=== PATIENT | male | born 1980 | race Caucasian/White ===

== ENCOUNTER 2017-01-13 09:28 | Emergency (ER) | payer SELFPAY ==
[2017-01-13] MEDS ORDERED: DIPH/PERTUSS(ACELL)/TETANUS VAC/PF 0.5 ML SYR (>=10YO) IM ONE (09:58)
[2017-01-13] MEDS ORDERED: LIDOCAINE 1% INJ-PF (10 MG/ML) 30 ML SDV INJ ONE (09:58)
[2017-01-13] MEDS ORDERED: OXYCODONE-ACETAMINOPHEN 5-325 MG TABLET PO ONE (10:32)
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
[2017-01-13] MEDS ORDERED: CLINDAMYCIN PHOSPHATE INJ 300 MG/2 ML SDV IM ONE (12:14)
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
[2017-01-13 12:43] VITALS: BP 113/62
== END 2017-01-13 14:00 ==
LOC: ER 09:28
PROC: 0HQGXZZ Repair Left Hand Skin, External Approach (ICD-10-PCS; principal; 2017-01-13)
DX: S61.412A Laceration without foreign body of left hand, initial encounter (principal); X99.1XXA Assault by knife, initial encounter; I10 Essential (primary) hypertension; J45.909 Unspecified asthma, uncomplicated; F17.200 Nicotine dependence, unspecified, uncomplicated
CPT/HCPCS: 99283; 96372; 90471; 73130; 90715; 12002; J3490

== ENCOUNTER 2017-04-30 22:44 | Emergency (ER) | payer SELFPAY ==
[2017-04-30] MEDS ORDERED: DIPH/PERTUSS(ACELL)/TETANUS VAC/PF 0.5 ML SYR (>=10YO) IM ONE (23:15)
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
[2017-05-01 00:43] LABS: APPEARANCE,URINE CLEAR; BILIRUBIN,URINE NEGATIVE (NEGATIVE); GLUCOSE, URINE NEGATIVE (NEGATIVE); KETONES,URINE NEGATIVE (NEGATIVE); LEUKOCYTE ESTERASE,URINE NEGATIVE (NEGATIVE); NITRITE,URINE NEGATIVE (NEGATIVE); PROTEIN,URINE NEGATIVE (NEGATIVE); URINE SPECIFIC GRAVITY 1.002; UROBILINOGEN,URINE NEGATIVE mg/dL (<2.0)
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
[2017-05-01 00:57] LABS: ABSOLUTE BASOPHILS # (AUTO) 0.1 10^3/uL (0.0-0.2); ABSOLUTE EOSINOPHILS # (AUTO) 0.1 10^3/uL (0.0-0.6); ABSOLUTE MONOCYTES (AUTO) 0.9 10^3/uL (0.1-1.4); ABSOLUTE NEUT (AUTO) 7.9 10^3/uL (1.7-8.2); BASOPHILS % (AUTO) 1.1 % (0-2); EOSINOPHILS % (AUTO) 1.2 % (0-6); HEMATOCRIT 47.9 % (37.9-51.0); HEMOGLOBIN 16.4 g/dL (13.5-17.0); HGB HCT DIFFERENCE 1.3; LYMPHOCYTES % (AUTO) 25.3 % (13-45); MEAN CORPUSCULAR HEMOGLOBIN 31.4 pg (27.0-33.4); MEAN CORPUSCULAR HGB CONC 34.2 g/dL (32.0-36.0); MEAN CORPUSCULAR VOLUME 92 fl (80-97); MONOCYTES % (AUTO) 7.1 % (3-13); RED BLOOD COUNT 5.21 10^6/uL (4.35-5.55); RED CELL DISTRIBUTION WIDTH 13.4 % (11.5-14.0); SEGMENTED NEUTROPHILS % (AUTO) 65.3 % (42-78)
[2017-05-01 01:01] LABS: PROTHROMBIN TIME 12.4 SEC (11.4-15.4)
[2017-05-01 01:02] LABS: PARTIAL THROMBOPLASTIN TIME 28.9 SEC (23.5-35.8)
[2017-05-01] MEDS ORDERED: LIDOCAINE 1%/EPINEPHRINE INJ 20 ML VIAL INJ ONE (01:13)
[2017-05-01 01:16] LABS: ALANINE AMINOTRANSFERASE 32 U/L (21-72); ALKALINE PHOSPHATASE 64 U/L (38-126); ASPARTATE AMINO TRANSFERASE 25 U/L (17-59); BILIRUBIN,DIRECT 0.5 mg/dL (0.0-0.4); BILIRUBIN,TOTAL 0.8 mg/dL (0.2-1.3); BLOOD UREA NITROGEN 12 mg/dL (7-20); CALCIUM 9.6 mg/dL (8.4-10.2); CREATININE RESULT 0.96 mg/dL (0.52-1.25); GLUCOSE 115 mg/dL (75-110); LIPASE 95.5 U/L (23-300); TOTAL PROTEIN 7.5 g/dL (6.3-8.2)
[2017-05-01 01:25] LABS: ALCOHOL 309 mg/dL (NONE DETECTED)
[2017-05-01 01:37] LABS: ANION GAP 20 (5-19)
[2017-05-01 01:38] LABS: CARBON DIOXIDE 20 mmol/L (22-30); CHLORIDE 109 mmol/L (98-107); SODIUM 149.2 mmol/L (137-145)
[2017-05-01 01:45] LABS: POTASSIUM 4.2 mmol/L (3.6-5.0)
[2017-05-01 03:57] VITALS: BP 117/72
== END 2017-05-01 03:55 ==
LOC: ER 22:44
DX: S09.90XA Unspecified injury of head, initial encounter (principal); R06.2 Wheezing; Y04.2XXA Assault by strike against or bumped into by another person, initial encounter; I10 Essential (primary) hypertension; F17.200 Nicotine dependence, unspecified, uncomplicated; Z88.0 Allergy status to penicillin; Z23 Encounter for immunization
CPT/HCPCS: 99284; 90471; 36415; 80307; 83690; 85025; 85610; 85730; 80053; 81001; 70450; 72125; 90715; J3490

== ENCOUNTER 2017-05-02 19:47 | Emergency (ER) | payer SELFPAY ==
[2017-05-02 19:55] VITALS: BP 149/85
== END 2017-05-02 23:23 | disposition left against medical advice (07) ==
LOC: ER 19:47
DX: Z53.9 Procedure and treatment not carried out, unspecified reason (principal)

== ENCOUNTER 2017-06-08 03:58 | Emergency (ER) | payer SELFPAY ==
--- NOTE | 2017-06-08 04:41 | ER Document Report ---
ED General - General TRAVEL OUTSIDE OF THE [place] IN LAST 30 DAYS: No <ARGENTINA VAIL - Last Filed: 06/08/17 06:34> <ABY RUSSELL - Last Filed: 06/08/17 10:20> <YOANNA DAIZ - Last Filed: 06/08/17 10:28> - General Stated Complaint: SUICIDAL IDEATION Time Seen by Provider: 06/08/17 04:21 Notes: Patient is 36-year-old male who presents with complaint of some depression. Patient apparently got in argument with his sister. According to report patient grabbed a razor and threatened to cut himself. Patient did not cut himself. Patient says that he did not really have any intention of cutting himself he was just upset at the time and was in argument with his sister. Police were then called and apparently patient was told that he could either go to group home or come to the ER. Patient decided to come to the ER voluntarily. Patient says that he is not suicidal or homicidal. He says he does have depression and history of depression. He says he started to develop depression after his marriage to his folded a few years ago. Currently he is in a good relationship with his girlfriend. He does admit that he drinks approximately twice a week. He says it does not get withdrawal. He says he really does drugs but did do cocaine and marijuana over New Year's Whitley. (ARGENTINA VAIL) - Related Data Allergies/Adverse Reactions: amoxicillin [Amoxicillin] Allergy (Unknown, Verified 05/02/17 19:53) Past Medical History - Social History Smoking Status: Current Every Day Smoker Frequency of alcohol use: Occasional Drug Abuse: Cocaine, Marijuana Family History: Reviewed & Not Pertinent - Past Medical History Cardiac Medical History: Reports: Hx Hypertension Pulmonary Medical History: Reports: Hx Asthma Renal/ Medical History: Denies: Hx Peritoneal Dialysis Past Surgical History: Reports: Hx Orthopedic Surgery - left hand, Hx Tonsillectomy - T/A - Immunizations Immunizations up to date: No Hx Diphtheria, Pertussis, Tetanus Vaccination: Yes <ARGENTINA VAIL - Last Filed: 06/08/17 06:34> Review of Systems <ARGENTINA VAIL - Last Filed: 06/08/17 06:34> <ABY RUSSELL - Last Filed: 06/08/17 10:20> <YOANNA DIAZ - Last Filed: 06/08/17 10:28> - Review of Systems Notes: My Normal Review Basic REVIEW OF SYSTEMS: CONSTITUTIONAL : Denies fever, chills, or sweats. Denies recent illness. EENT: Denies eye, ear, throat, or mouth pain or symptoms. Denies nasal or sinus congestion. CARDIOVASCULAR: Denies chest pain. RESPIRATORY: Denies cough, cold, or chest congestion. Denies shortness of breath, difficulty breathing, or wheezing. GASTROINTESTINAL: Denies abdominal pain. Denies nausea, vomiting, or diarrhea. MUSCULOSKELETAL: Denies neck or back pain or joint pain or swelling. SKIN: Denies rash or skin lesions. NEUROLOGICAL: Denies altered mental status or loss of consciousness. Denies headache. Denies weakness or paralysis or loss of use of either side. Denies problems with gait or speech. Denies sensory or motor loss. PSYCHIATRIC: Depression. ALL OTHER SYSTEMS REVIEWED AND NEGATIVE. (ARGENTINA VAIL) Physical Exam <ARGENTINA VAIL - Last Filed: 06/08/17 06:34> <ABY RUSSELL - Last Filed: 06/08/17 10:20> <YOANNA DIAZ - Last Filed: 06/08/17 10:28> - Vital signs Vitals: Temp Pulse Resp BP Pulse Ox 97.4 F 61 18 158/100 H 100 06/08/17 03:59 06/08/17 03:59 06/08/17 03:59 06/08/17 03:59 06/08/17 03:59 - Notes Notes: General Appearance: Well nourished, alert, cooperative, no acute distress, no obvious discomfort. Vitals: reviewed, See vital signs table. Head: no swelling or tenderness to the head Eyes: PERRL, EOMI, Conjuctiva clear Mouth: No decreasd moisture Lungs: No wheezing, No rales, No rhonci, No accessory muscle use, good air exchange bilaterally. Heart: Normal rate, Regular rythm, No murmur, no rub Abdomen: Normal BS, soft, No rigidity, No abdominal tenderness, No guarding, no rebound, no abdominal masses, no organomegaly Extremities: strength 5/5 in all extremities, good pulses in all extremities, no swelling or tenderness in the extremities, no edema. Skin: warm, dry, appropriate color, no rash Neuro: speech clear, oriented x 3, normal affect, responds appropriately to questions. Psychiatric: Patient at times tearful but very forthcoming with his history. She does make good eye contact. (ARGENTINA VAIL) Course - Laboratory Result Diagrams: 06/08/17 05:10 06/08/17 05:10 <ARGENTINA VAIL - Last Filed: 06/08/17 06:34> - Laboratory Result Diagrams: 06/08/17 05:10 06/08/17 05:10 <ABY RUSSELL - Last Filed: 06/08/17 10:20> - Laboratory Result Diagrams: 06/08/17 05:10 06/08/17 05:10 <YOANNA DIAZ - Last Filed: 06/08/17 10:28> - Re-evaluation Re-evalutation: 06/08/17 06:35 Patient does agree to speak with psychiatry to talk to him about potential medication use to help with his depression. He said he has been on Cymbalta which is helped in the past. He does have history of alcohol abuse but says he drinks once to twice a week. He is able answer questions appropriately. I do not believe he is suicidal. He seems forthcoming and is able answer questions appropriately with me. She does not have any signs of injuring himself. I do not think he needs to be placed on involuntary commitment paperwork at this time. Patient is medically stable for psychiatric evaluation. Dictation of this chart was performed using voice recognition software; therefore, there may be some unintended grammatical errors. (ARGENTINA VAIL) - Vital Signs Vital signs: Temp Pulse Resp BP Pulse Ox 97.8 F 78 18 111/76 95 06/08/17 08:16 06/08/17 08:16 06/08/17 08:16 06/08/17 08:16 06/08/17 08:16 - Laboratory Laboratory results interpreted by me: 06/08/17 06/08/17 04:35 05:10 Sodium 150.8 H Chloride 111 H Urine Blood SMALL H Salicylates < 1.0 L Acetaminophen < 10 L - EKG Interpretation by Me Additional EKG results interpreted by me: 01/03/18 04:42 EKG is reviewed and interpreted by me. EKG shows sinus rhythm with a rate of [address] segment elevation or depression. No ischemic T-wave inversions. NH interval, QRS duration, QTc intervals are within normal range. No old EKG available for comparison at this time. (ARGENTINA VAIL) Discharge <ARGENTINA VAIL - Last Filed: 06/08/17 06:34> <ABY RUSSELL - Last Filed: 06/08/17 10:20> <YOANNA DIAZ - Last Filed: 06/08/17 10:28> - Discharge Clinical Impression: Alcohol abuse Depression Qualifiers: Depression Type: unspecified Qualified Code(s): F32.9 - Major depressive disorder, single episode, unspecified Condition: Stable Disposition: HOME, SELF-CARE Additional Instructions: ACUTE ALCOHOL INTOXICATION and ALCOHOL ABUSE: Your evaluation revealed very high levels of alcohol. You can from drinking a large amount of alcohol rapidly! Further, there's the risk of falls , traffic accidents, and fights. A high portion (about 50 percent) of the serious injuries seen in hospital emergency rooms are caused by alcohol. Alcohol overdosage is usually due to an underlying emotional or psychiatric problem. You may benefit from counselling. If "binge" drinking is an ongoing problem for you, or if you drink ANY AMOUNT of alcohol EVERY day, you most likely have a tendency to alcoholism. You should avoid alcohol totally. We can refer you for treatment. Persons with alcohol problems are often also prone to other addictions -- you should discuss any use of medications or drugs with the doctor. You should be watched at home for the next several hours by someone who has not been drinking. Get extra fluids for the next 24 hours. Call the doctor if there is repeated vomiting, increasing headache, decreasing level of alertness, or any other worsening. CHRONIC ALCOHOLISM and ALCOHOL ABUSE: Your evaluation reveals evidence of chronic alcoholism, an addiction to alcohol. The tendency to alcoholism may be inherited. Chronic use of alcohol weakens muscles, causes fatty deposits in the liver , damages the stomach, makes you more prone to infections, and can cause defects in unborn children. In the long run, brain atrophy and cirrhosis of the liver result. You are also at greater risk for certain types of cancer, such as cancer of the mouth, throat, stomach, and liver. Counselling services are available to help you. In-hospital treatment programs often help. Support groups such as Alcoholics Anonymous can be very useful in beating this addiction. Your physician can make a referral for you. As alcoholics often are prone to other addictions, you should discuss your use of any other medications with the doctor. DEPRESSION: Your evaluation reveals that you have mental depression. While symptoms may be vague, they often include disturbance of sleep, fatigue, loss of appetite , and general loss of interest in life. While depression may be a side effect of drugs, or a reaction to a major change in your life, many cases have no known cause. If depression is acute, and related to a major loss in your life, you can expect it to clear completely with time. If you have been depressed a long time , are prone to repeated bouts of depression or low mood, or have been thinking of suicide, get help. Depression can be treated with anti-depressant medication and counselling. Long-term depression will often take a few weeks to clear, even with appropriate medication. Follow-up care is important. SUICIDAL IDEATION: Suicidal ideation is a common medical term for thoughts about suicide, which may be as detailed as a formulated plan, without the suicidal act itself. Although most people who undergo suicidal ideation do not commit suicide, some go on to make suicide attempts. The range of suicidal ideation varies greatly from fleeting to detailed planning, role playing, and unsuccessful attempts. While thoughts about suicide are common, most people do not carry out serious actions to commit suicide. Based upon your evaluation and discussion with you, we do not believe you are currently at risk to act upon your thoughts of suicide. You have agreed to return to the Emergency Department, at any time , if you feel inclined to act upon your suicidal thoughts. FOLLOW-UP CARE: Please follow-up with [facility] in 3-5 days for your outpatient substance abuse treatment. You have also been provided a substance abuse resource packet with information if you choose to go inpatient treatment for your substance abuse. If you experience worsening or a significant change in your symptoms, notify the physician immediately or return to the Emergency Department at any time for re-evaluation. Prescriptions: Hydroxyzine Pamoate [Vistaril 50 mg Capsule] 50 mg PO TID PRN #30 capsule PRN Reason: Anxiety/Agitation Referrals: [facility] [Outside] - Follow up in 3-5 days
[2017-06-08 05:33] LABS: ABSOLUTE EOSINOPHILS # (AUTO) 0.2 10^3/uL (0.0-0.6); ABSOLUTE LYMPHOCYTES (AUTO) 3.3 10^3/uL (0.5-4.7); ABSOLUTE MONOCYTES (AUTO) 0.5 10^3/uL (0.1-1.4); ABSOLUTE NEUT (AUTO) 3.8 10^3/uL (1.7-8.2); BASOPHILS % (AUTO) 0.6 % (0-2); EOSINOPHILS % (AUTO) 2.8 % (0-6); HEMATOCRIT 46.3 % (37.9-51.0); HEMOGLOBIN 15.6 g/dL (13.5-17.0); LYMPHOCYTES % (AUTO) 42.2 % (13-45); MEAN CORPUSCULAR HEMOGLOBIN 30.9 pg (27.0-33.4); MEAN CORPUSCULAR HGB CONC 33.6 g/dL (32.0-36.0); MEAN CORPUSCULAR VOLUME 92 fl (80-97); MONOCYTES % (AUTO) 6.4 % (3-13); PLATELET COUNT 212 10^3/uL (150-450); RED BLOOD COUNT 5.04 10^6/uL (4.35-5.55); RED CELL DISTRIBUTION WIDTH 13.4 % (11.5-14.0); TOTAL CELLS COUNTED % (AUTO) 100 %; WHITE BLOOD COUNT 7.8 10^3/uL (4.0-10.5)
[2017-06-08 05:39] LABS: APPEARANCE,URINE CLEAR; BILIRUBIN,URINE NEGATIVE (NEGATIVE); COLOR,URINE STRAW; GLUCOSE, URINE NEGATIVE (NEGATIVE); KETONES,URINE NEGATIVE (NEGATIVE); LEUKOCYTE ESTERASE,URINE NEGATIVE (NEGATIVE); NITRITE,URINE NEGATIVE (NEGATIVE); PROTEIN,URINE NEGATIVE (NEGATIVE); URINE SPECIFIC GRAVITY 1.005; UROBILINOGEN,URINE NEGATIVE mg/dL (<2.0)
[2017-06-08 05:52] LABS: BLOOD UREA NITROGEN 16 mg/dL (7-20); CALCIUM 9.7 mg/dL (8.4-10.2); GLUCOSE 97 mg/dL (75-110)
[2017-06-08 05:53] LABS: ACETAMINOPHEN < 10 ug/mL (10-30); ALANINE AMINOTRANSFERASE 30 U/L (21-72); ALBUMIN 4.7 g/dL (3.5-5.0); ALCOHOL 197 mg/dL (NONE DETECTED); ALKALINE PHOSPHATASE 59 U/L (38-126); ANION GAP 18 (5-19); ASPARTATE AMINO TRANSFERASE 19 U/L (17-59); BILIRUBIN,DIRECT 0.2 mg/dL (0.0-0.4); BILIRUBIN,TOTAL 0.5 mg/dL (0.2-1.3); CARBON DIOXIDE 22 mmol/L (22-30); CHLORIDE 111 mmol/L (98-107); POTASSIUM 4.4 mmol/L (3.6-5.0); SALICYLATE < 1.0 mg/dL (2.0-20.0); SODIUM 150.8 mmol/L (137-145); TOTAL PROTEIN 7.3 g/dL (6.3-8.2)
[2017-06-08 05:57] LABS: URINE AMPHETAMINES SCREEN NEGATIVE; URINE BARBITURATES SCREEN NEGATIVE; URINE BENZODIAZEPINES SCREEN NEGATIVE; URINE COCAINE SCREEN NEGATIVE; URINE MARIJUANA (THC) SCREEN UNCONFIRMED POSITIVE; URINE METHADONE SCREEN NEGATIVE; URINE PHENCYCLIDINE SCREEN NEGATIVE
--- NOTE | 2017-06-08 09:52 | PSYCHOLOGICAL NOTE ---
Psych Note - Psych Note Psych Note: * Reason for Consult: Substance abuse, suicidal gesture * Consent permission; girlfriend [phone] Patient is 36-year-old male who presents with complaint of some depression. Patient apparently got in argument with his sister. According to report patient grabbed a razor and threatened to cut himself. Patient did not cut himself. Patient says that he did not really have any intention of cutting himself he was just upset at the time and was in argument with his sister. Police were then called and apparently patient was told that he could either go to prison or come to the ER. Patient decided to come to the ER voluntarily. Patient says that he is not suicidal or homicidal. He says he does have depression and history of depression. He says he started to develop depression after his marriage to his folded a few years ago. Currently he is in a good relationship with his girlfriend. He does admit that he drinks approximately twice a week. He says it does not get withdrawal. He says he really does drugs but did do cocaine and marijuana over New Year's Whitley. Patient disclosed that he came to [facility] ED for an evaluation because this the sister thought he needed one. He continued to state that "instead of fighting back I just decided to appease her." Patient continues state that his sister thinks he needs to stop drinking; however, that is not why she wanted him to come for an evaluation. Patient then stated that he did not make any threats and that it was "just under the misunderstanding between us." When patient was asked about the razor he denies remembering making any suicidal threats, stating "I would never hurt myself." Patient's girlfriend is currently in bound from [place]; arrival time approximately 3 hours. Patient is alert and orientated to person, place, time and circumstance. Mood is euthymic with congruent affect. Patient denies suicidal and homicidal ideation. Patient reportedly made a suicidal gesture during argument last night while intoxicated. Patient denies current memory of this. Patient denies homicidal ideation. Delusions are absent behaviors congruent with intact reality based presentation i.e. organized, linear, rational thinking. Eye contact was well-maintained. Conversational speech was within normal rate, tone and prosody. Intellectual abilities appear to be within the average range. Attention and concentration were good. Insight, judgment, impulse control are currently good however overall poor in relation to substance abuse. 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 Patient does not meet IVC criteria per [place] GS 122C. He denies suicidal and homicidal ideation; "I would never hurt myself." Patient reportedly made a suicidal gesture during argument last night while intoxicated. Patient denies current memory of this. It is noted patient was given the option last night to either go to prison or go to to [facility] ED; patient chose to come to [facility] ED voluntarily. Toxicology screening supports patient's disclosure of being under the influence with a blood alcohol level of 197. Patient was provided substance abuse resource packet. Patient is recommended to follow-up with outpatient substance abuse treatment. Patient does complain of "some depression" which would correlate with long-term substance abuse. Patient is recommended to follow-up with outpatient substance abuse treatment. Dr. Enamorado was consulted and the care management of this patient; attending physician is in agreement with recommendations and disposition.
[2017-06-08 10:56] VITALS: BP 125/90
--- NOTE | 2017-06-08 19:06 | EKG REPORT ---
SEVERITY:- NORMAL ECG - SINUS RHYTHM : Confirmed by: Nancie Echeverria 08-Jun-2017 19:05:14
== END 2017-06-08 10:56 | disposition home or self-care (01) ==
LOC: ER 03:58
DX: F32.9 Major depressive disorder, single episode, unspecified (principal); F10.10 Alcohol abuse, uncomplicated; F14.90 Cocaine use, unspecified, uncomplicated; F12.90 Cannabis use, unspecified, uncomplicated; F17.200 Nicotine dependence, unspecified, uncomplicated
CPT/HCPCS: 36415; 80053; 80307; 81001; 85025; 93005; 93010; 99285

== ENCOUNTER 2017-09-12 14:39 | Emergency (ER) | payer OTHER ==
[2017-09-12] MEDS ORDERED: IBUPROFEN 800 MG TABLET PO ONE (16:09)
[2017-09-12] MEDS ORDERED: CYCLOBENZAPRINE HCL 10 MG TABLET PO ONE (16:09)
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
[2017-09-12 18:00] VITALS: BP 139/87
== END 2017-09-12 18:00 | disposition home or self-care (01) ==
LOC: ER 14:39
DX: M54.2 Cervicalgia (principal); M25.511 Pain in right shoulder; M54.5 Low back pain; V49.50XA Passenger injured in collision with unspecified motor vehicles in traffic accident, initial encounter; M47.9 Spondylosis, unspecified; I10 Essential (primary) hypertension; J45.909 Unspecified asthma, uncomplicated; F17.200 Nicotine dependence, unspecified, uncomplicated
CPT/HCPCS: 72050; 72110; 99283

== ENCOUNTER 2017-11-20 01:24 | Emergency (ER) | payer OTHER ==
[2017-11-20] MEDS ORDERED: LIDOCAINE 1% INJ-PF (10 MG/ML) 30 ML SDV INJ ONE (01:54)
[2017-11-20] MEDS ORDERED: ONDANSETRON 4 MG TAB.RAPDIS PO ONE ×2 (02:52→08:00)
[2017-11-20] MEDS ORDERED: LOPERAMIDE HCL 2 MG CAPSULE PO ONE ×2 (02:52→08:00)
[2017-11-20] MEDS ORDERED: NICOTINE 21 MG/24 HR PATCH.TD24 TD ONE ×2 (02:53→08:00)
[2017-11-20] MEDS ORDERED: CLONIDINE 0.1 MG/24 HR PATCH.TDWK TD ONE ×3 (02:53→08:00)
[2017-11-20 04:58] LABS: ABSOLUTE BASOPHILS # (AUTO) 0.1 10^3/uL (0.0-0.2); ABSOLUTE EOSINOPHILS # (AUTO) 0.3 10^3/uL (0.0-0.6); ABSOLUTE LYMPHOCYTES (AUTO) 3.6 10^3/uL (0.5-4.7); ABSOLUTE MONOCYTES (AUTO) 0.8 10^3/uL (0.1-1.4); BASOPHILS % (AUTO) 0.6 % (0-2); EOSINOPHILS % (AUTO) 2.9 % (0-6); HEMATOCRIT 45.6 % (37.9-51.0); HEMOGLOBIN 15.7 g/dL (13.5-17.0); LYMPHOCYTES % (AUTO) 36.9 % (13-45); MEAN CORPUSCULAR HEMOGLOBIN 32.2 pg (27.0-33.4); MEAN CORPUSCULAR HGB CONC 34.3 g/dL (32.0-36.0); MEAN CORPUSCULAR VOLUME 94 fl (80-97); PLATELET COUNT 256 10^3/uL (150-450); RED BLOOD COUNT 4.86 10^6/uL (4.35-5.55); RED CELL DISTRIBUTION WIDTH 13.4 % (11.5-14.0); SEGMENTED NEUTROPHILS % (AUTO) 51.6 % (42-78); TOTAL CELLS COUNTED % (AUTO) 100 %; WHITE BLOOD COUNT 9.8 10^3/uL (4.0-10.5)
[2017-11-20 05:02] LABS: ALANINE AMINOTRANSFERASE 26 U/L (21-72); ALBUMIN 4.5 g/dL (3.5-5.0); ALCOHOL 189 mg/dL (NONE DETECTED); ALKALINE PHOSPHATASE 57 U/L (38-126); ANION GAP 15 (5-19); ASPARTATE AMINO TRANSFERASE 24 U/L (17-59); BILIRUBIN,DIRECT 0.4 mg/dL (0.0-0.4); BILIRUBIN,TOTAL 0.4 mg/dL (0.2-1.3); BLOOD UREA NITROGEN 19 mg/dL (7-20); CALCIUM 9.4 mg/dL (8.4-10.2); CARBON DIOXIDE 23 mmol/L (22-30); CHLORIDE 110 mmol/L (98-107); GLUCOSE 95 mg/dL (75-110); POTASSIUM 5.2 mmol/L (3.6-5.0); SODIUM 148.4 mmol/L (137-145); TOTAL PROTEIN 7.2 g/dL (6.3-8.2)
[2017-11-20 05:03] LABS: ACETAMINOPHEN < 10 ug/mL (10-30); SALICYLATE < 1.0 mg/dL (2.0-20.0)
[2017-11-20 05:28] LABS: APPEARANCE,URINE CLEAR; BILIRUBIN,URINE NEGATIVE (NEGATIVE); COLOR,URINE YELLOW; GLUCOSE, URINE NEGATIVE (NEGATIVE); KETONES,URINE NEGATIVE (NEGATIVE); LEUKOCYTE ESTERASE,URINE NEGATIVE (NEGATIVE); NITRITE,URINE NEGATIVE (NEGATIVE); PROTEIN,URINE NEGATIVE (NEGATIVE); URINE SPECIFIC GRAVITY 1.015; UROBILINOGEN,URINE NEGATIVE mg/dL (<2.0)
[2017-11-20 06:01] LABS: URINE AMPHETAMINES SCREEN NEGATIVE; URINE BARBITURATES SCREEN NEGATIVE; URINE BENZODIAZEPINES SCREEN NEGATIVE; URINE COCAINE SCREEN NEGATIVE; URINE MARIJUANA (THC) SCREEN UNCONFIRMED POSITIVE; URINE METHADONE SCREEN NEGATIVE; URINE PHENCYCLIDINE SCREEN NEGATIVE
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
--- NOTE | 2017-11-20 08:27 | EKG REPORT ---
SEVERITY:- NORMAL ECG - SINUS RHYTHM ST ELEV, PROBABLE NORMAL EARLY REPOL PATTERN : Confirmed by: Jose Vega MD 20-Nov-2017 08:27:05
--- NOTE | 2017-11-20 10:03 | ER Document Report ---
Doctor's Note Notes: 11/20/17 10:01 Rounds: Chart reviewed and patient interviewed. Being evaluated for suicidal thoughts. Patient says it was because he was drinking alcohol. His EtOH on arrival was 189. Has a history of bipolar disorder and depression. Patient did cut the volar aspect of his left wrist and sustained a wound that required sutures. He has full range of motion of that hand and wrist, even though it hurts. No neurologic deficits in the left hand. Patient is right-hand dominant. He is currently on no medications for his bipolar disorder. Labs were positive for marijuana in addition to the EtOH of 189. Vital signs are all normal. Patient appears to be medically stable for transfer or discharge. Shereen Babin MD
[2017-11-20 10:15] VITALS: BP 147/79
== END 2017-11-20 13:05 | disposition home or self-care (01) ==
LOC: ER 01:24
PROC: 0HQEXZZ Repair Left Lower Arm Skin, External Approach (ICD-10-PCS; principal; 2017-11-20)
DX: F10.129 Alcohol abuse with intoxication, unspecified (principal); Y90.6 Blood alcohol level of 120-199 mg/100 ml; S61.512A Laceration without foreign body of left wrist, initial encounter; X78.8XXA Intentional self-harm by other sharp object, initial encounter; Y92.009 Unspecified place in unspecified non-institutional (private) residence as the place of occurrence of the external cause; F17.200 Nicotine dependence, unspecified, uncomplicated; I10 Essential (primary) hypertension; Z88.0 Allergy status to penicillin
CPT/HCPCS: 93005; 99285; 36415; 80307 ×4; 85025; 80053; 81001; 93010; 12002; J3490 ×2